=== PATIENT | female | born 1970 | race Caucasian/White ===

== ENCOUNTER 2019-12-10 22:29 | Inpatient (IN) | payer BC ==
[~2019-12-10] VITALS: Ht 167.6 cm; Wt 108.9 kg
[2019-12-10] MEDS ORDERED: SODIUM CHLORIDE 0.9% 1000ML BAG (SEPSIS BOLUS) IV ONE (23:30)
[2019-12-11] MEDS ORDERED: KETOROLAC 30MG/ML VIAL IV ONE (01:00)
[2019-12-11 01:05] LABS: CLARITY URINE CLOUDY (CLEAR); COLOR URINE YELLOW (YELLOW); HEMATOCRIT. 40.8 % (36.0-48.0); HEMOGLOBIN. 13.6 g/dL (12.0-16.0); KETONES URINE 1+ (NEGATIVE); LEUKOCYTE ESTERASE URINE NEGATIVE (NEGATIVE); MEAN CORPUSCULAR HEMOGLOBIN 28.7 pg (28.0-32.0); MEAN CORPUSCULAR VOLUME 86.4 fL (81.0-99.0); MEAN PLATELET VOLUME 7.8 fl (7.4-10.4); NITRITE URINE NEGATIVE (NEGATIVE); OCCULT BLOOD URINE 1+ (NEGATIVE); PLATELET 176 x1000/uL (130-400); PROTEIN URINE 2+ (NEGATIVE); RED BLOOD CELL COUNT 4.73 mill/uL (4.2-5.4); RED CELL DISTRIBUTION WIDTH 13.6 % (11.6-14.6); SPECIFIC GRAVITY URINE 1.026 (1.005-1.030); UROBILINOGEN URINE 0.2 E.U./dL (0.2-1.0)
[2019-12-11 01:21] LABS: INR 1.1; PROTHROMBIN TIME 12.2 sec (9.6-11.0)
[2019-12-11 01:23] LABS: CHLORIDE 100 mEq/L (98-107)
[2019-12-11] MEDS ORDERED: CEFTRIAXONE 1 G PREMIX 50 ML IV SCH ×2 (02:00→07:30)
[2019-12-11 06:20] LABS: PLATELET ESTIMATE NORMAL
[2019-12-11] MEDS ORDERED: LORAZEPAM 2MG/ML CPJ IV PRN (07:30)
[2019-12-11] MEDS ORDERED: MAGNESIUM/ALUMINUM HYDROXIDE/SIMETHICONE 30ML UDC PO PRN (07:30)
[2019-12-11] MEDS ORDERED: DIPHENHYDRAMINE 50MG/ML VIAL IV PRN (07:30)
[2019-12-11] MEDS ORDERED: MORPHINE SULFATE 2 MG/ML CPJ (NOT FOR IM USE) IV PRN (07:30)
[2019-12-11] MEDS ORDERED: GUAIFENESIN 200MG/10ML SUGAR FREE UDC PO PRN (07:30)
[2019-12-11] MEDS: SODIUM CHLORIDE 0.45% 1,000 ML IV SCH ×2 (07:30→21:07)
[2019-12-11] MEDS ORDERED: HYDRALAZINE 20MG/ML VIAL IV PRN (07:30)
[2019-12-11] MEDS ORDERED: DOCUSATE SODIUM 100MG CAPSULE PO PRN (07:30)
[2019-12-11] MEDS ORDERED: HYDROCODONE/ACETAMINOPHEN 10/325MG TABLET PO PRN (07:30)
[2019-12-11] MEDS: ONDANSETRON HCL 4MG/2ML INJ IV PRN (12:10)
[2019-12-11] MEDS: ENOXAPARIN 40MG/0.4ML SYR SUBCUT SCH (12:11)
[2019-12-11 15:32] LABS: CREATINE KINASE 38 IU/L (26-192); CREATINE KINASE MB FRACTION < 1.0 ng/mL (0.5-3.6)
[2019-12-11 16:30] VITALS: BP 147/78
[2019-12-11] MEDS ORDERED: BUPR75TA8 PO (17:15)
[2019-12-11] MEDS ORDERED: LISI10TA5 MT (17:15)
[2019-12-11] MEDS ORDERED: GLIP5TAB12 MT (17:15)
[2019-12-11] MEDS ORDERED: ROSU5TAB MT (17:15)
[2019-12-11] MEDS ORDERED: SERT25TA74 PO (17:15)
[2019-12-11] MEDS ORDERED: SITA100T11 MT (17:15)
[2019-12-11] MEDS ORDERED: BUPR200T31 PO (17:15)
[2019-12-11] MEDS: ACETAMINOPHEN 325MG TABLET PO PRN (17:47)
[2019-12-11 20:46] VITALS: BP 131/72
[2019-12-11] MEDS: CEFTRIAXONE 1 G PREMIX 50 ML IV SCH (21:07)
[2019-12-11] MEDS: SODIUM CHLORIDE 0.9% INJ 3ML FLUSH IVF SCH (21:10)
[2019-12-12] VITALS: BP 127/81
[2019-12-12 00:34] LABS: CREATINE KINASE 30 IU/L (26-192)
[2019-12-12 00:38] LABS: CREATINE KINASE MB FRACTION < 1.0 ng/mL (0.5-3.6)
[2019-12-12 04:00] VITALS: BP 133/85
[2019-12-12] MEDS: SODIUM CHLORIDE 0.9% INJ 3ML FLUSH IVF SCH ×3 (05:10→22:00)
[2019-12-12 08:00] VITALS: BP 144/84
[2019-12-12] MEDS: ENOXAPARIN 40MG/0.4ML SYR SUBCUT SCH (09:00)
[2019-12-12] MEDS: ONDANSETRON HCL 4MG/2ML INJ IV PRN (09:14)
[2019-12-12 11:10] LABS: BASOPHILS % 0.2 % (0.0-2.0); EOSINOPHILS % 0.7 % (0.0-5.0); HEMOGLOBIN. 11.4 g/dL (12.0-16.0); LYMPHOCYTES % 9.3 % (20.0-50.0); MEAN CORPUSCULAR HEMOGLOBIN 29.8 pg (28.0-32.0); MEAN CORPUSCULAR VOLUME 86.1 fL (81.0-99.0); MEAN PLATELET VOLUME 8.3 fl (7.4-10.4); MONOCYTES % 4.8 % (2.0-8.0); PLATELET 109 x1000/uL (130-400); RED BLOOD CELL COUNT 3.83 mill/uL (4.2-5.4); RED CELL DISTRIBUTION WIDTH 13.5 % (11.6-14.6)
[2019-12-12 11:13] LABS: CHLORIDE 103 mEq/L (98-107)
[2019-12-12] MEDS: SODIUM CHLORIDE 0.45% 1,000 ML IV SCH (11:35)
[2019-12-12] MEDS: ACETAMINOPHEN 325MG TABLET PO PRN ×3 (11:49→21:12)
[2019-12-12 12:00] VITALS: BP 153/81
[2019-12-12 16:00] VITALS: BP 147/74
[2019-12-12 20:00] VITALS: BP 174/91
[2019-12-12] MEDS: CLONIDINE 0.1MG TABLET PO PRN (21:12)
[2019-12-12] MEDS: CEFTRIAXONE 1 G PREMIX 50 ML IV SCH (22:18)
[2019-12-13] VITALS (7 sets, daily range): BP systolic 102–133; BP diastolic 62–83
[2019-12-13] MEDS ORDERED: DEXTROSE 50% WATER 50ML SYRINGE IV PRN (01:00)
[2019-12-13] MEDS: SODIUM CHLORIDE 0.45% 1,000 ML IV SCH (02:42)
[2019-12-13 06:07] LABS: HEMOGLOBIN. 10.4 g/dL (12.0-16.0); MEAN CORPUSCULAR HEMOGLOBIN 28.9 pg (28.0-32.0); MEAN CORPUSCULAR VOLUME 86.3 fL (81.0-99.0); PLATELET 75 x1000/uL (130-400); RED BLOOD CELL COUNT 3.58 mill/uL (4.2-5.4); RED CELL DISTRIBUTION WIDTH 13.5 % (11.6-14.6)
[2019-12-13] MEDS: SODIUM CHLORIDE 0.9% INJ 3ML FLUSH IVF SCH ×3 (06:23→21:45)
[2019-12-13] MEDS: BLOOD SUGAR DIAGNOSTIC STRIP TEST SCH ×4 (06:23→21:31)
[2019-12-13] MEDS: ENOXAPARIN 40MG/0.4ML SYR SUBCUT SCH (08:01)
[2019-12-13] MEDS: INSULIN LISPRO 100 UNITS/ML SUBCUT SCH ×4 (08:56→21:44)
[2019-12-13 14:18] LABS: PLATELET ESTIMATE DECREASED
[2019-12-13] MEDS: ACETAMINOPHEN 325MG TABLET PO PRN (18:37)
[2019-12-13] MEDS ORDERED: ENOXAPARIN 30MG/0.3ML SYR SUBCUT SCH (21:00)
[2019-12-13] MEDS: CEFTRIAXONE 1 G PREMIX 50 ML IV SCH (21:31)
[2019-12-14] VITALS: BP 134/78
[2019-12-14] MEDS: ACETAMINOPHEN 325MG TABLET PO PRN ×3 (00:43→23:00)
[2019-12-14] MEDS: SODIUM CHLORIDE 0.45% 1,000 ML IV SCH (02:29)
[2019-12-14 04:00] VITALS: BP 130/80
[2019-12-14] MEDS: SODIUM CHLORIDE 0.9% INJ 3ML FLUSH IVF SCH ×3 (06:11→21:41)
[2019-12-14] MEDS: BLOOD SUGAR DIAGNOSTIC STRIP TEST SCH ×4 (06:22→21:07)
[2019-12-14 06:51] LABS: BASOPHILS % 0.5 % (0.0-2.0); EOSINOPHILS % 1.3 % (0.0-5.0); HEMATOCRIT. 31.8 % (36.0-48.0); HEMOGLOBIN. 10.9 g/dL (12.0-16.0); LYMPHOCYTES % 13.4 % (20.0-50.0); MEAN CORPUSCULAR HEMOGLOBIN 29.2 pg (28.0-32.0); MEAN CORPUSCULAR VOLUME 85.6 fL (81.0-99.0); MEAN PLATELET VOLUME 9.4 fl (7.4-10.4); MONOCYTES % 0.6 % (2.0-8.0); NEUTROPHILS % 84.2 % (40.0-76.0); PLATELET 93 x1000/uL (130-400); RED BLOOD CELL COUNT 3.71 mill/uL (4.2-5.4); RED CELL DISTRIBUTION WIDTH 13.8 % (11.6-14.6)
[2019-12-14 07:35] LABS: CHLORIDE 103 mEq/L (98-107)
[2019-12-14 08:08] VITALS: BP 132/80
[2019-12-14] MEDS: INSULIN LISPRO 100 UNITS/ML SUBCUT SCH ×4 (08:12→21:13)
[2019-12-14] MEDS: BUPROPION HCL 150MG TABLET XL 24HR PO SCH (10:36)
[2019-12-14] MEDS: SERTRALINE HCL 25MG TABLET PO SCH (10:36)
[2019-12-14 12:45] VITALS: BP 135/77
[2019-12-14] MEDS ORDERED: CEFTRIAXONE 1 G PREMIX 50 ML IV ONE (16:15)
[2019-12-14 16:16] VITALS: BP 136/61
[2019-12-14] MEDS ORDERED: POTASSIUM CHLORIDE 20MEQ TABLET SR PO NR (17:00)
[2019-12-14] MEDS: LEVOFLOXACIN 500MG PREMIX 100 ML IV SCH (18:57)
[2019-12-14 20:00] VITALS: BP 127/75
[2019-12-14] MEDS: IPRATROPIUM/ALBUTEROL 0.5-3(2.5)MG/3ML NEB HHN PRN (23:37)
[2019-12-15] VITALS: BP 131/73
[2019-12-15 04:00] VITALS: BP 129/74
[2019-12-15] MEDS: SODIUM CHLORIDE 0.9% INJ 3ML FLUSH IVF SCH ×3 (05:27→21:48)
[2019-12-15] MEDS: ACETAMINOPHEN 325MG TABLET PO PRN ×4 (05:27→23:08)
[2019-12-15] MEDS: IPRATROPIUM/ALBUTEROL 0.5-3(2.5)MG/3ML NEB HHN PRN ×2 (06:18→12:48)
[2019-12-15] MEDS: BLOOD SUGAR DIAGNOSTIC STRIP TEST SCH ×4 (06:32→21:49)
[2019-12-15 08:00] VITALS: BP 136/65
[2019-12-15] MEDS: SERTRALINE HCL 25MG TABLET PO SCH (08:25)
[2019-12-15] MEDS: BUPROPION HCL 150MG TABLET XL 24HR PO SCH (08:25)
[2019-12-15] MEDS: INSULIN LISPRO 100 UNITS/ML SUBCUT SCH ×4 (08:42→21:54)
[2019-12-15 12:00] VITALS: BP 122/71
[2019-12-15 16:00] VITALS: BP_SYST 126; BP_SYST 135; BP_DIAS 72; BP_DIAS 74
[2019-12-15] MEDS: LEVOFLOXACIN 500MG PREMIX 100 ML IV SCH (18:11)
[2019-12-15 20:00] VITALS: BP 153/83
[2019-12-16] VITALS: BP 137/69
[2019-12-16] MEDS: IPRATROPIUM/ALBUTEROL 0.5-3(2.5)MG/3ML NEB HHN PRN ×2 (00:10→22:56)
[2019-12-16 04:00] VITALS: BP 134/79
[2019-12-16] MEDS: SODIUM CHLORIDE 0.9% INJ 3ML FLUSH IVF SCH ×3 (05:43→21:17)
[2019-12-16] MEDS: BLOOD SUGAR DIAGNOSTIC STRIP TEST SCH ×4 (06:24→21:13)
[2019-12-16] MEDS: ACETAMINOPHEN 325MG TABLET PO PRN ×2 (06:40→23:42)
[2019-12-16 07:03] LABS: BASOPHILS % 0.5 % (0.0-2.0); EOSINOPHILS % 0.5 % (0.0-5.0); HEMATOCRIT. 28.6 % (36.0-48.0); HEMOGLOBIN. 9.5 g/dL (12.0-16.0); LYMPHOCYTES % 14.5 % (20.0-50.0); MEAN CORPUSCULAR HEMOGLOBIN 28.4 pg (28.0-32.0); MEAN CORPUSCULAR VOLUME 85.3 fL (81.0-99.0); MEAN PLATELET VOLUME 10.1 fl (7.4-10.4); MONOCYTES % 5.5 % (2.0-8.0); PLATELET 78 x1000/uL (130-400); RED BLOOD CELL COUNT 3.35 mill/uL (4.2-5.4); RED CELL DISTRIBUTION WIDTH 14.3 % (11.6-14.6)
[2019-12-16 08:00] VITALS: BP 127/77
[2019-12-16 08:01] LABS: CHLORIDE 106 mEq/L (98-107)
[2019-12-16] MEDS: SERTRALINE HCL 25MG TABLET PO SCH (09:13)
[2019-12-16] MEDS: INSULIN LISPRO 100 UNITS/ML SUBCUT SCH ×4 (09:14→21:17)
[2019-12-16] MEDS: BUPROPION HCL 150MG TABLET XL 24HR PO SCH (09:14)
[2019-12-16 12:00] VITALS: BP 131/84
[2019-12-16 16:00] VITALS: BP 106/58
[2019-12-16] MEDS: LEVOFLOXACIN 500MG PREMIX 100 ML IV SCH (17:59)
[2019-12-16 20:00] VITALS: BP 148/92
[2019-12-16] MEDS ORDERED: HYDROCODONE/ACETAMINOPHEN 5/325MG TABLET PO PRN (22:00)
[2019-12-16] MEDS ORDERED: LORAZEPAM 2MG/ML CPJ IV PRN (22:00)
[2019-12-16] MEDS: CLONIDINE 0.1MG TABLET PO PRN (23:37)
[2019-12-17] VITALS (7 sets, daily range): BP systolic 103–159; BP diastolic 57–100
[2019-12-17] MEDS: SODIUM CHLORIDE 0.9% INJ 3ML FLUSH IVF SCH ×3 (06:09→21:33)
[2019-12-17] MEDS: BLOOD SUGAR DIAGNOSTIC STRIP TEST SCH ×4 (06:27→21:33)
[2019-12-17 07:15] LABS: BASOPHILS % 0.2 % (0.0-2.0); EOSINOPHILS % 0.2 % (0.0-5.0); HEMATOCRIT. 27.9 % (36.0-48.0); HEMOGLOBIN. 9.4 g/dL (12.0-16.0); LYMPHOCYTES % 7.9 % (20.0-50.0); MEAN CORPUSCULAR HEMOGLOBIN 28.4 pg (28.0-32.0); MEAN CORPUSCULAR VOLUME 84.8 fL (81.0-99.0); MEAN PLATELET VOLUME 10.4 fl (7.4-10.4); MONOCYTES % 3.7 % (2.0-8.0); PLATELET 97 x1000/uL (130-400); RED BLOOD CELL COUNT 3.29 mill/uL (4.2-5.4); RED CELL DISTRIBUTION WIDTH 14.3 % (11.6-14.6)
[2019-12-17 07:33] LABS: CHLORIDE 103 mEq/L (98-107)
[2019-12-17] MEDS: SERTRALINE HCL 25MG TABLET PO SCH (08:45)
[2019-12-17] MEDS: BUPROPION HCL 150MG TABLET XL 24HR PO SCH (08:45)
[2019-12-17] MEDS: INSULIN LISPRO 100 UNITS/ML SUBCUT SCH ×4 (08:53→21:39)
[2019-12-17] MEDS: LEVOFLOXACIN 500MG PREMIX 100 ML IV SCH (18:00)
[2019-12-17 18:17] LABS: HCG SCREEN NEGATIVE
[2019-12-17] MEDS: ACETAMINOPHEN 325MG TABLET PO PRN (20:40)
[2019-12-18] VITALS: BP 130/66
[2019-12-18 04:00] VITALS: BP 139/69
[2019-12-18] MEDS: SODIUM CHLORIDE 0.9% INJ 3ML FLUSH IVF SCH ×3 (05:57→22:02)
[2019-12-18] MEDS: BLOOD SUGAR DIAGNOSTIC STRIP TEST SCH ×4 (06:13→21:36)
[2019-12-18 06:33] LABS: BASOPHILS % 0.4 % (0.0-2.0); EOSINOPHILS % 0.7 % (0.0-5.0); HEMATOCRIT. 29.1 % (36.0-48.0); HEMOGLOBIN. 9.7 g/dL (12.0-16.0); LYMPHOCYTES % 12.3 % (20.0-50.0); MEAN CORPUSCULAR HEMOGLOBIN 28.7 pg (28.0-32.0); MEAN CORPUSCULAR VOLUME 85.6 fL (81.0-99.0); MEAN PLATELET VOLUME 9.9 fl (7.4-10.4); MONOCYTES % 4.1 % (2.0-8.0); NEUTROPHILS % 82.5 % (40.0-76.0); PLATELET 115 x1000/uL (130-400); RED CELL DISTRIBUTION WIDTH 14.2 % (11.6-14.6)
[2019-12-18 07:32] LABS: CHLORIDE 104 mEq/L (98-107)
[2019-12-18] MEDS: SERTRALINE HCL 25MG TABLET PO SCH (07:53)
[2019-12-18] MEDS: BUPROPION HCL 150MG TABLET XL 24HR PO SCH (07:53)
[2019-12-18] MEDS: INSULIN LISPRO 100 UNITS/ML SUBCUT SCH ×4 (07:56→22:01)
[2019-12-18 08:18] VITALS: BP 123/75
[2019-12-18 12:00] VITALS: BP 135/81
[2019-12-18 15:44] VITALS: BP 124/78
[2019-12-18] MEDS: LEVOFLOXACIN 500MG PREMIX 100 ML IV SCH (16:32)
[2019-12-18 20:00] VITALS: BP 139/87
[2019-12-19] VITALS (11 sets, daily range): BP systolic 131–152; BP diastolic 77–112
[2019-12-19 06:31] LABS: HEMATOCRIT. 28.5 % (36.0-48.0); HEMOGLOBIN. 9.8 g/dL (12.0-16.0); MEAN CORPUSCULAR HEMOGLOBIN 29.4 pg (28.0-32.0); MEAN CORPUSCULAR VOLUME 85.9 fL (81.0-99.0); MEAN PLATELET VOLUME 9.7 fl (7.4-10.4); PLATELET 150 x1000/uL (130-400); RED BLOOD CELL COUNT 3.32 mill/uL (4.2-5.4); RED CELL DISTRIBUTION WIDTH 14.6 % (11.6-14.6)
[2019-12-19] MEDS: BLOOD SUGAR DIAGNOSTIC STRIP TEST SCH ×3 (06:37→21:00)
[2019-12-19] MEDS: SODIUM CHLORIDE 0.9% INJ 3ML FLUSH IVF SCH ×2 (06:40→22:00)
[2019-12-19 07:32] LABS: CHLORIDE 104 mEq/L (98-107)
[2019-12-19] MEDS: INSULIN LISPRO 100 UNITS/ML SUBCUT SCH ×3 (07:50→21:50)
[2019-12-19] MEDS ORDERED: CEFTRIAXONE 1 G PREMIX 50 ML IV NR (09:00)
[2019-12-19] MEDS: BUPROPION HCL 150MG TABLET XL 24HR PO SCH (09:00)
[2019-12-19] MEDS: SERTRALINE HCL 25MG TABLET PO SCH (09:00)
[2019-12-19] MEDS ORDERED: ZOLPIDEM TARTRATE 5MG TABLET PO PRN (11:15)
[2019-12-19 11:44] LABS: PLATELET ESTIMATE NORMAL
[2019-12-19] MEDS ORDERED: PROPOFOL 200MG/20ML VIAL IV ONE (12:24)
[2019-12-19] MEDS ORDERED: SUCCINYLCHOLINE CHLORIDE 200MG/10ML IV ONE (12:24)
[2019-12-19] MEDS ORDERED: METOCLOPRAMIDE HCL 10MG/2ML VIAL ONE (12:24)
[2019-12-19] MEDS ORDERED: GLYCOPYRROLATE 0.2 MG/ML 2ML VIAL ONE (12:24)
[2019-12-19] MEDS ORDERED: MIDAZOLAM HCL 2 MG/2 ML VIAL ONE ×2 (12:24→12:56)
[2019-12-19] MEDS ORDERED: NEOSTIGMINE METHYLSULFATE 1MG/ML 10 ML VIAL ONE (12:24)
[2019-12-19] MEDS ORDERED: SODIUM CHLORIDE 0.9% 10ML VIAL ONE (12:24)
[2019-12-19] MEDS ORDERED: FENTANYL CITRATE/PF 50MCG/ML 2ML VIAL ONE ×2 (12:24→12:44)
[2019-12-19] MEDS ORDERED: PHENYLEPHRINE HCL 10 MG/ML 1ML (IV VIAL) IV ONE (12:24)
[2019-12-19] MEDS ORDERED: ONDANSETRON HCL 4MG/2ML INJ ONE (12:24)
[2019-12-19] MEDS ORDERED: LIDOCAINE HCL/PF 1% 10 MG/ML 5ML VIAL ONE (12:24)
[2019-12-19] MEDS ORDERED: ROCURONIUM BROMIDE 10MG/ML VIAL 5ML IV ONE ×2 (12:24→12:56)
[2019-12-19] MEDS ORDERED: EPHEDRINE SULFATE 50MG/ML VIAL ONE (12:24)
[2019-12-19] MEDS ORDERED: ETOMIDATE 2MG/ML 10ML VIAL IV ONE (12:32)
[2019-12-19] MEDS ORDERED: ALBUMIN HUMAN 12.5G/250ML (5%) IV ONE (12:53)
[2019-12-19] MEDS ORDERED: ONDANSETRON HCL 4MG/2ML INJ IV PRN (13:30)
[2019-12-19] MEDS ORDERED: MEPERIDINE HCL/PF 25MG/ML CPJ IV PRN (13:30)
[2019-12-19] MEDS ORDERED: MORPHINE SULFATE 2 MG/ML CPJ (NOT FOR IM USE) IV PRN (13:30)
[2019-12-19] MEDS ORDERED: HYDROMORPHONE HCL/PF 2MG/ML CPJ IV PRN (13:30)
[2019-12-19] MEDS ORDERED: SODIUM CHLORIDE 0.9% 1,000 ML IV ONE (13:44)
[2019-12-19 14:00] LABS: BG BASE EXCESS -3.2 mmol/L (-2.0-2.0); BG CARBOXYHEMOGLOBIN 0.2 % (0.5-1.5); BG DEOXYHEMOGLOBIN 8.7 % (0.0-5.0); BG FRACTION INSPIRED OXYGEN 100; BG HCO3 ACT 21.8 mmol/L (22.0-26.0); BG METHEMOGLOBIN 0.3 % (0.0-1.5); BG OXYGEN SATURATION 91.3 % (92.0-98.5); BG OXYHEMOGLOBIN 90.8 % (94.0-97.0); BG PCO2 38.7 mmHg (35.0-45.0); BG PH 7.368 (7.350-7.450); BG PO2 66.2 mmHg (75.0-100.0); BG SAMPLE SITE RIGHT RADIAL; BG TIDAL VOLUME(mL) 500 mL; BG TOTAL HEMOGLOBIN 11.7 g/dL (12.0-18.0); BG VENT MODE VENT - A/C; BG VENT RATE 14 set
[2019-12-19] MEDS: MEPERIDINE HCL/PF 25MG/ML CPJ IV PRN ×2 (14:27→17:34)
[2019-12-19] MEDS ORDERED: PROPOFOL 10MG/ML 100ML 100 ML IV PRN (15:15)
[2019-12-19] MEDS ORDERED: AMIKACIN SULFATE 250 MG in SODIUM CHLORIDE 0.9% 100 ML IV SCH (16:15)
[2019-12-19 16:25] LABS: CHLORIDE 107 mEq/L (98-107)
[2019-12-19] MEDS ORDERED: AMIKACIN SULFATE 250 MG in SODIUM CHLORIDE 0.9% 100 ML IV NR (17:00)
[2019-12-19 17:07] LABS: BG BASE EXCESS -0.4 mmol/L (-2.0-2.0); BG CARBOXYHEMOGLOBIN 0.2 % (0.5-1.5); BG DEOXYHEMOGLOBIN 0.7 % (0.0-5.0); BG FRACTION INSPIRED OXYGEN 100; BG METHEMOGLOBIN 0.3 % (0.0-1.5); BG OXYGEN SATURATION 99.3 % (92.0-98.5); BG OXYHEMOGLOBIN 98.8 % (94.0-97.0); BG PCO2 33.3 mmHg (35.0-45.0); BG PH 7.458 (7.350-7.450); BG PO2 394.4 mmHg (75.0-100.0); BG SAMPLE SITE RIGHT BRACHIAL; BG TIDAL VOLUME(mL) 500 mL; BG TOTAL HEMOGLOBIN 10.2 g/dL (12.0-18.0); BG VENT MODE VENT - A/C; BG VENT RATE 14 set
[2019-12-19] MEDS ORDERED: FENTANYL CITRATE/PF 500 MCG in SODIUM CHLORIDE 0.9% 40 ML IV PRN (18:30)
[2019-12-19] MEDS: IPRATROPIUM BROMIDE (0.02%) 0.5MG/2.5ML NEB HHN SCH (20:53)
[2019-12-19] MEDS ORDERED: ACETAMINOPHEN 650MG SUPP PR PRN (21:15)
[2019-12-19] MEDS ORDERED: LORAZEPAM 2MG/ML CPJ IV PRN (21:15)
[2019-12-19] MEDS: DEXT 5%/0.9% NACL 1,000 ML IV SCH (21:45)
[2019-12-20] VITALS (65 sets, daily range): BP systolic 89–149; BP diastolic 47–91
[2019-12-20] MEDS: AMIKACIN 500MG in SODIUM CHLORIDE 0.9% 100ML IV SCH ×3 (00:21→23:15)
[2019-12-20] MEDS: IPRATROPIUM BROMIDE (0.02%) 0.5MG/2.5ML NEB HHN SCH ×4 (01:49→20:13)
[2019-12-20] MEDS: SODIUM CHLORIDE 0.9% INJ 3ML FLUSH IVF SCH ×3 (06:00→22:00)
[2019-12-20 06:08] LABS: CHLORIDE 107 mEq/L (98-107)
[2019-12-20] MEDS: BLOOD SUGAR DIAGNOSTIC STRIP TEST SCH ×4 (06:08→20:59)
[2019-12-20] MEDS: INSULIN LISPRO 100 UNITS/ML SUBCUT SCH ×4 (06:08→21:03)
[2019-12-20 06:37] LABS: BASOPHILS % 0.4 % (0.0-2.0); EOSINOPHILS % 0.4 % (0.0-5.0); HEMATOCRIT. 28.1 % (36.0-48.0); HEMOGLOBIN. 9.2 g/dL (12.0-16.0); LYMPHOCYTES % 15.4 % (20.0-50.0); MEAN CORPUSCULAR HEMOGLOBIN 28.5 pg (28.0-32.0); MEAN CORPUSCULAR VOLUME 86.5 fL (81.0-99.0); MEAN PLATELET VOLUME 9.1 fl (7.4-10.4); MONOCYTES % 5.3 % (2.0-8.0); NEUTROPHILS % 78.5 % (40.0-76.0); PLATELET 184 x1000/uL (130-400); RED BLOOD CELL COUNT 3.25 mill/uL (4.2-5.4); RED CELL DISTRIBUTION WIDTH 14.8 % (11.6-14.6)
[2019-12-20 08:16] LABS: BG BASE EXCESS -1.2 mmol/L (-2.0-2.0); BG CARBOXYHEMOGLOBIN 0.3 % (0.5-1.5); BG DEOXYHEMOGLOBIN 1.6 % (0.0-5.0); BG HCO3 ACT 23.6 mmol/L (22.0-26.0); BG METHEMOGLOBIN 0.1 % (0.0-1.5); BG OXYGEN SATURATION 98.4 % (92.0-98.5); BG PCO2 39.6 mmHg (35.0-45.0); BG PH 7.393 (7.350-7.450); BG PO2 136.9 mmHg (75.0-100.0); BG SAMPLE SITE RIGHT RADIAL; BG TIDAL VOLUME(mL) 500 mL; BG TOTAL HEMOGLOBIN 10.1 g/dL (12.0-18.0); BG VENT MODE VENT - A/C; BG VENT RATE 14 set
[2019-12-20 09:54] LABS: BG CARBOXYHEMOGLOBIN 0.3 % (0.5-1.5); BG CPAP (cmH2O) 0 cm(H2O); BG DEOXYHEMOGLOBIN 3.3 % (0.0-5.0); BG HCO3 ACT 26.5 mmol/L (22.0-26.0); BG METHEMOGLOBIN 0.4 % (0.0-1.5); BG OXYGEN SATURATION 96.7 % (92.0-98.5); BG PCO2 41.1 mmHg (35.0-45.0); BG PH 7.427 (7.350-7.450); BG SAMPLE SITE RIGHT RADIAL; BG TOTAL HEMOGLOBIN 10.2 g/dL (12.0-18.0); BG VENT MODE VENT - CPAP
[2019-12-20] MEDS: DEXT 5%/0.9% NACL 1,000 ML IV SCH (11:17)
[2019-12-20] MEDS: CEFTRIAXONE 1 G PREMIX 50 ML IV SCH ×2 (11:17→20:43)
[2019-12-20] MEDS: SERTRALINE HCL 25MG TABLET PO SCH (11:35)
[2019-12-20] MEDS: BUPROPION HCL 150MG TABLET XL 24HR PO SCH (17:48)
[2019-12-20] MEDS: LEVOFLOXACIN 500MG PREMIX 100 ML IV SCH (17:49)
[2019-12-21] VITALS (32 sets, daily range): BP systolic 98–161; BP diastolic 61–100
[2019-12-21] MEDS: IPRATROPIUM BROMIDE (0.02%) 0.5MG/2.5ML NEB HHN SCH ×3 (01:54→14:00)
[2019-12-21 05:52] LABS: BASOPHILS % 0.3 % (0.0-2.0); EOSINOPHILS % 1.1 % (0.0-5.0); HEMATOCRIT. 26.8 % (36.0-48.0); HEMOGLOBIN. 9.1 g/dL (12.0-16.0); LYMPHOCYTES % 18.2 % (20.0-50.0); MEAN CORPUSCULAR HEMOGLOBIN 29.6 pg (28.0-32.0); MEAN CORPUSCULAR VOLUME 87.4 fL (81.0-99.0); MEAN PLATELET VOLUME 8.5 fl (7.4-10.4); NEUTROPHILS % 74.4 % (40.0-76.0); PLATELET 196 x1000/uL (130-400); RED BLOOD CELL COUNT 3.07 mill/uL (4.2-5.4); RED CELL DISTRIBUTION WIDTH 14.9 % (11.6-14.6)
[2019-12-21 05:58] LABS: CHLORIDE 107 mEq/L (98-107)
[2019-12-21] MEDS: SODIUM CHLORIDE 0.9% INJ 3ML FLUSH IVF SCH ×3 (06:00→21:01)
[2019-12-21] MEDS: INSULIN LISPRO 100 UNITS/ML SUBCUT SCH ×4 (07:00→21:01)
[2019-12-21] MEDS: BLOOD SUGAR DIAGNOSTIC STRIP TEST SCH ×4 (07:20→21:01)
[2019-12-21] MEDS: SERTRALINE HCL 25MG TABLET PO SCH (08:23)
[2019-12-21] MEDS: BUPROPION HCL 150MG TABLET XL 24HR PO SCH (08:23)
[2019-12-21] MEDS: CEFTRIAXONE 1 G PREMIX 50 ML IV SCH ×2 (08:23→22:07)
[2019-12-21] MEDS: DEXT 5%/0.9% NACL 1,000 ML IV SCH ×2 (13:15→19:57)
[2019-12-22 00:51] VITALS: BP 116/69
[2019-12-22] MEDS: IPRATROPIUM BROMIDE (0.02%) 0.5MG/2.5ML NEB HHN SCH ×2 (02:19→08:06)
[2019-12-22 04:00] VITALS: BP 138/63
[2019-12-22] MEDS: SODIUM CHLORIDE 0.9% INJ 3ML FLUSH IVF SCH ×3 (05:38→23:00)
[2019-12-22] MEDS: BLOOD SUGAR DIAGNOSTIC STRIP TEST SCH ×4 (06:33→22:43)
[2019-12-22 08:06] VITALS: BP 149/89
[2019-12-22] MEDS: SERTRALINE HCL 25MG TABLET PO SCH (08:53)
[2019-12-22] MEDS: BUPROPION HCL 150MG TABLET XL 24HR PO SCH (08:53)
[2019-12-22] MEDS: INSULIN LISPRO 100 UNITS/ML SUBCUT SCH ×4 (08:57→22:59)
[2019-12-22] MEDS: CEFTRIAXONE 1 G PREMIX 50 ML IV SCH ×2 (10:32→22:48)
[2019-12-22 12:00] VITALS: BP 145/81
[2019-12-22] MEDS: DEXT 5%/0.9% NACL 1,000 ML IV SCH ×2 (13:24→15:55)
[2019-12-22 16:07] VITALS: BP 127/83
[2019-12-22 20:00] VITALS: BP 129/67
[2019-12-23] VITALS: BP 130/71
[2019-12-23 04:00] VITALS: BP 144/80
[2019-12-23] MEDS: SODIUM CHLORIDE 0.9% INJ 3ML FLUSH IVF SCH (05:03)
[2019-12-23] MEDS: DEXT 5%/0.9% NACL 1,000 ML IV SCH (05:03)
[2019-12-23 05:40] VITALS: BP 144/80
[2019-12-23] MEDS: BLOOD SUGAR DIAGNOSTIC STRIP TEST SCH ×2 (06:04→12:06)
[2019-12-23 07:02] LABS: BASOPHILS % 0.6 % (0.0-2.0); EOSINOPHILS % 1.7 % (0.0-5.0); HEMATOCRIT. 27.1 % (36.0-48.0); HEMOGLOBIN. 9.1 g/dL (12.0-16.0); LYMPHOCYTES % 32.5 % (20.0-50.0); MEAN CORPUSCULAR HEMOGLOBIN 29.2 pg (28.0-32.0); MEAN CORPUSCULAR VOLUME 86.8 fL (81.0-99.0); MEAN PLATELET VOLUME 7.7 fl (7.4-10.4); MONOCYTES % 5.7 % (2.0-8.0); NEUTROPHILS % 59.5 % (40.0-76.0); PLATELET 305 x1000/uL (130-400); RED BLOOD CELL COUNT 3.13 mill/uL (4.2-5.4); RED CELL DISTRIBUTION WIDTH 14.8 % (11.6-14.6)
[2019-12-23 07:36] LABS: CHLORIDE 108 mEq/L (98-107)
[2019-12-23 08:00] VITALS: BP 152/85
[2019-12-23] MEDS: CEFTRIAXONE 1 G PREMIX 50 ML IV SCH (08:41)
[2019-12-23] MEDS: BUPROPION HCL 150MG TABLET XL 24HR PO SCH (08:41)
[2019-12-23] MEDS: SERTRALINE HCL 25MG TABLET PO SCH (08:41)
[2019-12-23] MEDS: INSULIN LISPRO 100 UNITS/ML SUBCUT SCH ×2 (09:05→13:01)
[2019-12-23] MEDS ORDERED: POTASSIUM CHLORIDE 20MEQ TABLET SR PO NR (09:15)
[2019-12-23 11:45] VITALS: BP_SYST 147; BP_SYST 152; BP_DIAS 85; BP_DIAS 94
[2019-12-23 12:10] VITALS: BP 171/96
== END 2019-12-23 14:10 | disposition home health service (06) | DRG 853 ==
LOC: ER 22:29 → 6WST 12-11 01:56 → EDBEDREQ 12-11 01:58 → EDBEDREQTM 12-11 01:58 → EDBEDREQSVC 12-11 01:58 → EDBEDREQDT 12-11 01:58 → ENRESERV 12-11 15:23 → MICUSO 12-19 18:11 → 6WST 12-21 14:55
PROVIDERS: ADMIT Internal Medicine; ATTEND Internal Medicine
PROC: 0T768DZ Dilation of Right Ureter with Intraluminal Device, Via Natural or Artificial Opening Endoscopic (ICD-10-PCS; principal; 2019-12-19)
PROC: 0TF68ZZ Fragmentation in Right Ureter, Via Natural or Artificial Opening Endoscopic (ICD-10-PCS; 2019-12-19)
DX: A41.51 Sepsis due to Escherichia coli [E. coli] (principal); J96.01 Acute respiratory failure with hypoxia; R65.21 Severe sepsis with septic shock; N13.6 Pyonephrosis; E87.2 Acidosis; B34.9 Viral infection, unspecified; E66.9 Obesity, unspecified; D64.9 Anemia, unspecified; D69.6 Thrombocytopenia, unspecified; E11.65 Type 2 diabetes mellitus with hyperglycemia; G47.00 Insomnia, unspecified; Z68.38 Body mass index [BMI] 38.0-38.9, adult; Z87.442 Personal history of urinary calculi
CPT/HCPCS: 36415; 36600; 71045; 74021; 74176; 76000; 76770; 80048; 80053; 80076; 80150; 81003; 82375; 82550; 82553; 82805; 82962; 83036; 83605; 83735; 83880; 84145; 84478; 84484; 84703; 85025; 87070; 87077; 87186; 87804; 93005; 93970; 94002; 94003; 94640; 97162; 99291; C1769; J0278; J0330; J0360; J0696; J1650; J1815; J1885; J1956; J2060; J2175; J2250; J2270; J2370; J2405; J2704; J2710; J2765; J3010; J3490; J7030; J7042; J7050; P9041